=== PATIENT | male | born 1945 | race Caucasian/White ===

== ENCOUNTER 2023-11-24 12:00 | Emergency (ER) | payer OTHER ==
[2023-11-24] MEDS ORDERED: KETOROLAC 30 MG/ML INJ ONE (12:48)
[2023-11-24 13:02] LABS: Absolute Basophils 0.1 K/uL (0-0.5); Absolute Eosinophils 0.1 K/uL (0-0.5); Absolute Lymphocytes (CBC) 1.1 K/uL (0.7-4.9); Absolute Monocytes 0.7 K/uL (0.1-1.3); Absolute Neutrophil 7.6 K/uL (1.8-8.0); Basophils % 0.7 % (0-1.3); Eosinophils % 1.5 % (0-4.4); Hematocrit 38.9 % (39.6-49.0); Hemoglobin 12.9 g/dL (13.6-17.9); Lymphocytes % 11.7 % (15.3-44.8); MCH 30.9 pg (27.0-35.0); MCHC 33.1 g/dL (32.0-36.0); MCV 93.4 fL (80-100); MPV 7.7 fL (7.6-11.3); Neutrophils % 79.1 % (41.7-73.7); Platelets 188 thou/uL (152-406); RBC Red Blood Cell Count 4.16 M/uL (4.33-5.43); Red Cell Distribution Width 14.9 % (12.1-15.2)
[2023-11-24 13:06] LABS: Specific Gravity 1.023 (1.005-1.030); Sqamous Epithelial <5 /HPF (None Seen); Urine Bacteria None Seen /HPF (<20); Urine Bilirubin NEGATIVE (Negative); Urine Blood 1+ (Negative); Urine Clarity Clear (Clear); Urine Color Light-Yellow (Yellow); Urine Culture Reflex Order NOT NEEDED; Urine Glucose NEGATIVE (Negative); Urine Ketones NEGATIVE (Negative); Urine Microscopic Reflex YN ORDER UMIC; Urine Mucus Slight /HPF (None Seen); Urine Nitrite NEGATIVE (Negative); Urine Protein TRACE (Negative); Urine Urobilinogen Normal (Normal); Urine WBC <5 /HPF (<5); Urine pH 5.5 (5.0-7.0)
[2023-11-24 13:18] LABS: Albumin 3.8 g/dL (3.4-5.0); Albumin/Globulin Ratio 1.1 (1.1-1.8); Anion Gap 6.9 mEq/L (5.0-15.0); Bilirubin Total 0.8 mg/dL (0.2-1.0); Globulin 3.4 g/dL (2.3-3.5); Potassium 4.9 mEq/L (3.5-5.1); Protein, Total 7.2 g/dL (6.4-8.2)
--- NOTE | 2023-11-24 15:19 | RAD REPORT ---
EXAMINATION: Abdomen Pelvis Wo Contrast CLINICAL INDICATION: Male, 78 years old. FLANK PAIN TECHNIQUE: CT abdomen and pelvis was performed, without IV contrast, as per department protocol. Axia l, sagittal and coronal reconstructions were obtained. One or more of the following dose reduction techniques were used: Automated exposure control, adjustment of the mA and kV according to the patien t size, and iterative reconstruction. Unless otherwise specified, incidental findings do not require dedicated imaging follow-up. COMPARISON: CT chest 06/26/2021 FINDINGS: The lack of intravenous contrast limits the sensitivity of this exam for evaluation of solid visceral organs, vascular structures, and retroperitoneum. LOWER CHEST: The visualized lung bases are clear of airspace opacities. Peripheral bullae and parasep vinay emphysematous changes. Elevation of the left hemidiaphragm again seen. LIVER: Normal in size and contour. No focal lesion. BILIARY SYSTEM: No suspicious abnormalities. SPLEEN: Normal size. No focal lesion. PANCREAS: No mass, ductal dilation, or akira-pancreatic fluid. ADRENALS: Normal; no mass. KIDNEYS AND URETERS: Duplication of the right renal collecting system. Numerous cortical and parapelv ic cysts bilaterally, larger on the left, stable. Moderate right hydronephrosis with prominent perinephric and periureteric fat stranding. 3 mm distal right ureteral calculus, see coronal image 72 , may be because of the obstruction. URINARY BLADDER: Normal contour. GASTROINTESTINAL TRACT: No evidence of bowel obstruction, significant free fluid, free air or abscess . Mild distal colonic diverticulosis. APPENDIX: Appendix not visualized, but no inflammatory changes in region of appendix. LYMPH NODES: No lymphadenopathy. MUSCULOSKELETAL: No acute or suspicious osseous abnormality. ADDITIONAL FINDINGS: Saccular infrarenal abdominal aortic aneurysm, with sac measuring 4.8 x 4.4 cm i n greatest axial diameters. Moderate prostatomegaly. IMPRESSION: Moderate right hydroureteronephrosis with prominent perinephric and periureteric fat stranding. 3 mm distal right ureteral calculus could be the cause of obstruction. Given the pronounced fat stranding, possibility of infection versus rupture or urine leak may be considered. Other incidental findings as above, including a saccular infrarenal abdominal aortic aneurysm measuri ng up to 4.8 cm in caliber.
--- NOTE | 2023-11-24 16:05 | EDPHYS ---
Physician Documentation [facility] Name: Keo Rowan Age: 78 yrs Sex: Male : 1945 Arrival Date: 11/24/2023 Time: 12:00 Bed 23 Private MD: ED Physician Naseem Briceno HPI: 11/23 13:58 This 78 yrs old Male presents to ER via Ambulatory with complaints of Abdominal Pain, rt Back Pain. 13:58 Patient presents to the ED with intermittent right flank pain rating to the right lower rt quadrant for the past 2 to 3 days. Patient states that when the pain occurs, he gets nauseated but has not vomited. Denies urinary symptoms or problems with bowel movements. Denies other acute complaints, symptoms are moderate in severity, no other aggravating or elevating factors. Historical: - Allergies: 12:08 PENICILLINS; ap3 - PMHx: 12:08 Hypercholesterolemia; Hypertensive disorder; ap3 - Immunization history:: Client reports receiving the 2nd dose of the Covid vaccine, Flu vaccine is up to date. - Infectious Disease History:: Denies. - Social history:: Smoking status: Patient denies any tobacco usage or history of. - Family history:: not pertinent. ROS: 13:58 Constitutional: Negative for fever, chills, and weight loss, Cardiovascular: Negative rt for chest pain, palpitations, and edema, Respiratory: Negative for shortness of breath, cough, wheezing, and pleuritic chest pain, MS/Extremity: Negative for injury and deformity, Skin: Negative for injury, rash, and discoloration, Neuro: Negative for headache, weakness, numbness, tingling, and seizure, 13:58 Abdomen/GI: Positive for abdominal pain, nausea, 13:58 Back: Positive for flank pain, Negative for injury or acute deformity, Exam: 13:58 Constitutional: This is a well developed, well nourished patient who is awake, alert, rt and in no acute distress. Head/Face: Normocephalic, atraumatic. Chest/axilla: Normal chest wall appearance and motion. Nontender with no deformity. No lesions are appreciated. Cardiovascular: Regular rate and rhythm with a normal S1 and S2. No gallops, murmurs, or rubs. Normal PMI, no JVD. No pulse deficits. Respiratory: Lungs have equal breath sounds bilaterally, clear to auscultation and percussion. No rales, rhonchi or wheezes noted. No increased work of breathing, no retractions or nasal flaring. Abdomen/GI: Soft, non-tender, with normal bowel sounds. No distension or tympany. No guarding or rebound. No evidence of tenderness throughout. Back: No spinal tenderness. No costovertebral tenderness. Full range of motion. Skin: Warm, dry with normal turgor. Normal color with no rashes, no lesions, and no evidence of cellulitis. MS/ Extremity: Pulses equal, no cyanosis. Neurovascular intact. Full, normal range of motion. Neuro: Awake and alert, GCS 15, oriented to person, place, time, and situation. Cranial nerves II-XII grossly intact. Motor strength 5/5 in all extremities. Sensory grossly intact. Cerebellar exam normal. Normal gait. Vital Signs: 12:07 BP 175 / 85; Pulse 58; Resp 17; Temp 97.7; Pulse Ox 100% ; Weight 88.45 kg; Height 6 ap3 ft. 0 in. ; Pain 4/10; 13:50 BP 151 / 93; Pulse 77; Resp 18; Pulse Ox 100% ; ar6 16:40 BP 144 / 84; Pulse 72; Resp 18; Pulse Ox 100% on R/A; ar6 12:07 Body Mass Index 26.45 (88.45 kg, 182.88 cm) ap3 12:07 Pain Scale: Adult ap3 MDM: 12:16 Medical Screening Exam initiated rt 16:27 Differential diagnosis: Kidney stone, pyelonephritis, AAA. Data reviewed: vital signs, rt nurses notes, lab test result(s), radiologic studies. Consideration of Admission/Observation Escalation of care including admission/observation considered. I discussed with patient the findings of multiple renal cysts, elevated creatinine, possible urinary leak as well as kidney stone. I did offer the patient admission to the hospital for further care of these. Patient states that his symptoms have significantly improved, that he wishes to go home. Patient understands that his creatinine is elevated, unclear chronicity of this and that he may have an acute kidney injury as compared to chronic kidney disease. He has decision-making capacity, understands risks of leaving. Patient to follow-up with urology, nephrology as an outpatient. I also informed patient of incidental finding of infrarenal abdominal aortic aneurysm, he understands that he needs to follow-up with his primary care provider for further surveillance of this.. I considered the following discharge prescriptions or medication management in the emergency department Medications were administered in the Emergency Department. See MAR. Independent interpretation of the following test(s) in the Emergency Department CT Scan: My interpretation is Ureteral stone seen on my interpretation of CT scan images. Care significantly affected by the following chronic conditions: Hypertension. Counseling: I had a detailed discussion with the patient and/or guardian regarding the historical points, exam findings, and any diagnostic results supporting the discharge/admit diagnosis, lab results, radiology results, the need for outpatient follow up, to return to the emergency department if symptoms worsen or persist or if there are any questions or concerns that arise at home. Response to treatment: the patient's symptoms have markedly improved after treatment. 11/23 12:33 Order name: CBC with Diff; Complete Time: 13:29 rt 11/23 12:33 Order name: CMP; Complete Time: 13:29 rt 11/23 12:33 Order name: Lipase; Complete Time: 13:29 rt 11/23 12:33 Order name: Urinalysis w/ reflexes; Complete Time: 13:29 rt 11/23 13:38 Order name: Abdomen ; Complete Time: 15:34 EDMS 11/23 12:33 Order name: IV Saline Lock; Complete Time: 12:54 rt 11/23 12:33 Order name: Labs collected and sent; Complete Time: 12:54 rt Administered Medications: 12:54 Drug: TORadol - Ketorolac IVP 15 mg IVP once Route: IVP; Site: right antecubital; ar6 13:59 Follow up: Response: No adverse reaction ar6 Disposition Summary: 11/24/23 16:04 Discharge Ordered Notes: Location: Home rt Condition: Stable rt Diagnosis - Calculus of ureter rt - Elevated creatinine rt - Infrarenal abdominal aortic aneurysm rt Followup: rt - With: Private Physician - When: 2 - 3 days - Reason: Followup: rt - With: Prakash Maier MD - When: 2 - 3 days - Reason: Followup: rt - With: Vern Harper MD - When: 2 - 3 days - Reason: Discharge Instructions: - Discharge Summary Sheet rt - Abdominal Aortic Aneurysm rt - Kidney Stones rt - Acute Kidney Injury, Adult rt Forms: - Medication Reconciliation Form rt - Antibiotic Education rt - Prescription Opioid Use rt - Patient Portal Instructions rt - Leadership Thank You Letter rt Prescriptions: - Flomax 0.4 mg Oral capsule - take 1 capsule ORAL route every 24 hours; 14 capsule; Refills: 0, Product rt Selection Permitted - Zofran 4 mg Oral tablet - take 1 tablet ORAL route every 12 hours As needed; 15 tablet; Refills: 0, rt Product Selection Permitted - Tramadol 50 mg Oral tablet - take 1 tablet ORAL route every 8 hours as needed for pain; 15 tablet; Refills: rt 0, Product Selection Permitted Signatures: Dispatcher [employer] EDMS Hemalatha Patricia RN RN ap3 Naseem Briceno MD MD rt Nilsa Maier RN RN ar6 Corrections: (The following items were deleted from the chart) 12:09 12:08 Allergies: No Known Allergies; ap3 ap3 13:38 12:33 Abdomen Pelvis W [id number].[id number] ordered. EDMS EDMS
--- NOTE | 2023-11-24 16:05 | ER ---
Nurse's Notes [facility] Name: Keo Rowan Age: 78 yrs Sex: Male : 1945 Arrival Date: 11/24/2023 Time: 12:00 Bed 23 Private MD: Diagnosis: Calculus of ureter;Elevated creatinine;Infrarenal abdominal aortic aneurysm Presentation: 11/23 12:07 Chief complaint: Patient states: he has been having right lower back pain that radiates ap3 to the right lower abdomen for "a few days". patient states that when the pain comes, he does get nauseated. Coronavirus screen: At this time, the client does not indicate any symptoms associated with coronavirus-19. Ebola Screen: No symptoms or risks identified at this time. Initial Sepsis Screen: Does the patient meet any 2 criteria? No. Patient's initial sepsis screen is negative. Does the patient have a suspected source of infection? No. Patient's initial sepsis screen is negative. Risk Assessment: Do you want to hurt yourself or someone else? Patient reports no desire to harm self or others. Onset of symptoms is unknown. 12:07 Method Of Arrival: Ambulatory ap3 12:07 Acuity: JESSICA 3 ap3 Triage Assessment: 12:09 General: Appears uncomfortable, Behavior is calm, cooperative, appropriate for age. ap3 Pain: Complains of pain in right flank, right lower abdomen Pain currently is 4 out of 10 on a pain scale. at worst was 8 out of 10 on a pain scale. Pain began gradually, 2-3 days ago. Is intermittent, Also complains of nausea. Neuro: Level of Consciousness is awake, alert, obeys commands, Oriented to person, place, time, situation, Appropriate for age Speech is normal. Cardiovascular: Patient's skin is warm and dry. Respiratory: Airway is patent Respiratory effort is even, unlabored, Respiratory pattern is regular, symmetrical. GI: Reports lower abdominal pain, nausea. : Reports pain in right flank(s). Historical: - Allergies: 12:08 PENICILLINS; ap3 - PMHx: 12:08 Hypercholesterolemia; Hypertensive disorder; ap3 - Immunization history:: Client reports receiving the 2nd dose of the Covid vaccine, Flu vaccine is up to date. - Infectious Disease History:: Denies. - Social history:: Smoking status: Patient denies any tobacco usage or history of. - Family history:: not pertinent. Screenin:10 Abuse screen: Denies threats or abuse. Nutritional screening: No deficits noted. ap3 Tuberculosis screening: No symptoms or risk factors identified. 12:12 [facility] ED Fall Risk Assessment (Adult) History of falling in the last 3 months, ap3 including since admission No falls in past 3 months (0 pts) Confusion or Disorientation No (0 pts) Intoxicated or Sedated No (0 pts) Impaired Gait No (0 pts) Mobility Assist Device Used No (0 pt) Altered Elimination No (0 pt) Score/Fall Risk Level 0 - 2 = Low Risk Oriented to surroundings, Maintained a safe environment, Educated pt \\T\\ family on fall prevention, incl call for assistance when getting out of bed, Assessed \\T\\ reinforced patient's understanding of fall precautions, Hourly rounding (assess needs \\T\\ fall precautionary measures) done, Used ambulatory aids as needed (educated on \\T\\ assisted with), Used gait belt as appropriate. Assessment: 12:50 General: Appears in no apparent distress. uncomfortable, Behavior is calm, cooperative, ar6 appropriate for age. Pain: Complains of pain in back Pain currently is 5 out of 10 on a pain scale. Quality of pain is described as radiating, sharp. Neuro: Level of Consciousness is awake, alert, obeys commands, Oriented to person, place, time, situation. Cardiovascular: Capillary refill < 3 seconds. Respiratory: Airway is patent. GI: Abdomen is round non-distended, Bowel sounds present X 4 quads. Abd is soft X 4 quads Abdomen is tender to palpation in anterior aspect of right lateral abdomen and posterior aspect of right lateral abdomen. : Urine is cloudy. EENT: Oral mucosa is moist. Derm: Skin is intact, is healthy with good turgor, Skin is dry, Skin is pink, warm \\T\\ dry. Musculoskeletal: No signs and/or symptoms reported regarding the musculoskeletal system. Vital Signs: 12:07 BP 175 / 85; Pulse 58; Resp 17; Temp 97.7; Pulse Ox 100% ; Weight 88.45 kg; Height 6 ap3 ft. 0 in. ; Pain 4/10; 13:50 BP 151 / 93; Pulse 77; Resp 18; Pulse Ox 100% ; ar6 16:40 BP 144 / 84; Pulse 72; Resp 18; Pulse Ox 100% on R/A; ar6 12:07 Body Mass Index 26.45 (88.45 kg, 182.88 cm) ap3 12:07 Pain Scale: Adult ap3 ED Course: 12:03 Patient arrived in ED. mr 12:04 Naseem Briceno MD is Attending Physician. rt 12:08 Triage completed. ap3 12:10 Arm band placed on right wrist. ap3 12:18 Bernice Strong, RN is Primary Nurse. iw 12:50 No apparent distress. Awaiting lab results. ar6 12:50 Patient has correct armband on for positive identification. Placed in gown. Bed in low ar6 position. Call light in reach. Side rails up X 1. Provided Education on: plan of care. Pulse ox on. NIBP on. Door closed. Lights dimmed. Moved to private room. Warm blanket given. Head of bed elevated. 12:50 No provider procedures requiring assistance completed. Inserted saline lock: 22 gauge ar6 in right antecubital area, using aseptic technique. Blood collected. Flushed with 10 mL NS. 12:54 CBC with Diff Sent. ar6 12:54 CMP Sent. ar6 12:54 Lipase Sent. ar6 12:54 Urinalysis w/ reflexes Sent. ar6 13:41 Abdomen In Process Unspecified. EDMS 16:03 Prakash Maier MD is Referral Physician. rt 16:03 Vern Harper MD is Referral Physician. rt 16:41 IV discontinued, intact, bleeding controlled, No redness/swelling at site. Pressure ar6 dressing applied. Administered Medications: 12:54 Drug: TORadol - Ketorolac IVP 15 mg IVP once Route: IVP; Site: right antecubital; ar6 13:59 Follow up: Response: No adverse reaction ar6 Medication: 12:50 VIS not applicable for this client. ar6 Outcome: 16:04 Discharge ordered by . rt 16:41 Discharged to home ambulatory, ar6 16:41 Condition: good 16:41 Discharge instructions given to patient, family, Instructed on discharge instructions, follow up and referral plans. Demonstrated understanding of instructions, follow-up care, 16:41 Patient left the ED. ar6 Signatures: Dispatcher [employer] EDCA Gertrude Goldberg, Reg Reg Bernice Strong, RN Hemalatha Benites RN RN ap3 Naseem Briceno MD MD rt Roberts, Amber RN RN ar6 Corrections: (The following items were deleted from the chart) 12:09 12:08 Allergies: No Known Allergies; ap3 ap3
[2023-11-24 17:30] VITALS: TEMP 97.7; O2SAT 100
[2023-11-24 17:33] VITALS: BP 144/84
== END 2023-11-24 16:41 | disposition home or self-care (01) ==
LOC: ER 12:00
DX: N20.1 Calculus of ureter (principal); R79.89 Other specified abnormal findings of blood chemistry; I71.43 Infrarenal abdominal aortic aneurysm, without rupture; I10 Essential (primary) hypertension; E78.00 Pure hypercholesterolemia, unspecified
CPT/HCPCS: 36415; 74176; 80053; 81001; 83690; 85025; 96374; 99284